=== PATIENT | female | born 1990 | race American Indian/Alaskan Native ===

== ENCOUNTER 2018-12-28 13:53 | Outpatient (CLI) | payer OTHER ==
[2018-12-28 15:44] LABS: Mean Corpuscular HGB Conc 32 % (30-34); Mean Corpuscular Volume 78 fl (79-97); Platelet Count 237 K/mm3 (140-440); Red Blood Count 3.61 M/mm3 (3.65-5.03)
[2018-12-28 15:50] LABS: Bacteria,Urine 2+ /HPF (Negative); Bilirubin,Urine NEG (Negative); Blood,Urine NEG (Negative); Color,Urine Amber (Yellow); Mucus,Urine 2+ /HPF
[2018-12-28 15:57] LABS: Alanine Aminotransferase 8 units/L (7-56); Uric Acid 4.4 mg/dL (3.5-7.6)
[2018-12-28 16:17] VITALS: BP 138/67
== END 2018-12-28 16:45 | disposition home or self-care (01) ==
LOC: TRG 13:53
PROVIDERS: ATTEND Obstetrics & Gynecology
DX: O47.1 False labor at or after 37 completed weeks of gestation (principal); Z3A.39 39 weeks gestation of pregnancy
CPT/HCPCS: 36415; 59025; 81001; 82565; 83615; 84450; 84460; 84550; 85027

== ENCOUNTER 2019-01-01 11:30 | Inpatient (IN) | payer OTHER ==
--- NOTE | 2018-12-25 16:02 | History and Physical Report ---
History of Present Illness Date of examination: 12/25/18 Chief complaint: Repeat delivery History of present illness: Past History : 3 Term Births: 2 Premature Births: 0 Living Children: 2 Para: 2 Mult. Births: 0 Prev : 2 Prev. attempt? none Aborta: 0 Elect. Ab: 0 Spont. Ab: 0 Ectopics: 0 # 1 Delivery date: 2008 Weeks Gestation: 41 Delivery type: Infant Sex: Male weight: 8-11 Comments: Failure to progress # 2 Delivery date: 2011 Weeks Gestation: 38 Delivery type: Infant Sex: Male weight: 7-11 Past Medical History: Negative Past Medical History Past Surgical History: (2008) (2011) Family History Summary: Other family member - Has No Family History of Ovarvian Cancer - Entered On: 12/12/2018 Other family member - Has No Family History of Colon Cancer - Entered On: 12/12/2018 Other family member - Has Family History of Hypertension - Entered On: 12/12/2018 Other family member - Has Family History of Diabetes - Entered On: 12/12/2018 Other family member - Has Family History of CVA or Stroke - Entered On: 12/12/2018 Other family member - Has Family History of Asthma - Entered On: 12/12/2018 Other family member - Has Family History Breast Cancer - Entered On: 12/12/2018 General Comments - FH: Glaucoma Social History: Marital Status: Children: 2 Occupation: unemployed Risk Factors: Smoked Tobacco Use: Current every day smoker Cigarettes: Yes Year started: 2016 Counseled to quit/cut down: yes Drug use: no HIV high-risk behavior: low risk Alcohol use: yes Drinks per day: social PAP Smear History: Date of Last PAP Smear: 07/17/2018 Results: normal Past Medical History 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 of genital herpes: no Genetic History Congenital Heart Defect: Mom: yes Dad: no Comments: sister ASD Marcello Disease: Mom: no Dad: no Thalassemia Mom: no Dad: no Neural Tube Defect Mom: no Dad: no Down's Syndrome Mom: no Dad: no Thierno-Sachs Mom: no Dad: no Sickle Cell Disease/Trait Mom: yes Dad: no Comments: Sister trait Hemophilia Mom: no Dad: no Muscular Dystrophy Mom: no Dad: no Cystic Fibrosis Mom: no Dad: no [place] Chorea Mom: no Dad: no Mental Retardation Mom: no Dad: no Fragile X Mom: no Dad: no Other Genetic/Chromosomal Disorder Mom: no Dad: no Child w/other defect Mom: no Dad: no Enviromental Exposures Xray Exposure: no Medication, drug, or alcohol use since LMP: no Chemical/Other Exposure: no Exposure to Cat Liter: no Hx of Parvovirus (Fifth Disease): no Current Allergies (reviewed today): VICODIN (HYDROCODONE-ACETAMINOPHEN TABS) (Critical) * ANAPHYYLAXIS (Critical) Physical Exam General appearance: well nourished, healthy appearing, no distress Chest/Lungs: respiratory effort normal, lungs clear to auscultation Cardiovascular: normal rate and rhythm Abdomen/GI: obese Extremities: no discoloration Impression & Recommendations: Problem # 1: Maternal care due to uterine scar from other previous surgery ([id number]) Consent reviewed and signed .The risks and alternatives for this surgery were reviewed with the patient. She was informed of possible bleeding, infection, injury to bowel, bladder, ureters or other adjacent organs. The patient was instructed/informed the following: The normal length of hospital stay for this procedure. Nothing to eat or drink after 3a the day of surgery Pre-op instruction sheets given. Wound care instructions given. Infection prec autions reviewed, patient to call for any signs or symptoms of infection. The usual discomforts associated with this procedure were detailed. Proper use of pain medicines was reviewed. Patient was given ample opportunity to have all her questions answered before signing informed consent. She declines sterilization Medications and Allergies Allergies Allergy/AdvReac Type Severity Reaction Status Date / Time acetaminophen [From Vicodin] Allergy Angioedema Verified 12/28/18 14:36 ceftibuten [From Cedax] Allergy Angioedema Verified 12/28/18 14:36 hydrocodone [From Vicodin] Allergy Angioedema Verified 12/28/18 14:36 Results All other labs normal. Assessment and Plan - Patient Problems (1) 39 weeks gestation of Status: Acute (2) Maternal care due to uterine scar from previous surgery Status: Acute Plan to address problem: She declines sterilization She was informed of the significant risks of complications occurring d/t body habitus and previous surgeries, specifically but not limited to, bowel injury that could lead to having BM's in a bag on her stomach and the same could occur for any injury to her urinary tract, also she was informed she will be as increased risk for bleeding that may require a blood transfusion with complication of infection or reaction or infection that along with the other complications could be fatal or life threatening. She voiced understanding. control options reviewed with patient
[~2019-01-01 11:30] MED LIST: ANCEF/STERILE WATER 2 GM/20 ML 2 GM/20 ML SYRINGE IV NR; BICITRA PO ONE; GENTAMICIN IV SCH; LACTATED RINGERS 1,000 ML IV SCH; PEPCID IV ONE; PITOCin/NS 20 UNIT/1000ML DRIP 20 UNITS/1,000 ML BAG IV SCH; REGLAN IV ONE
[2019-01-01] MEDS ORDERED: CLEOCIN 600 MG/50 mL 600 MG/50 ML BAG IV NR (13:00)
[2019-01-01] MEDS ORDERED: LACTATED RINGERS 2,000 ML ONE (14:01)
[2019-01-01] MEDS ORDERED: NACL 0.9% IV SCH (14:45)
[2019-01-01] MEDS ORDERED: GENTAMICIN IV SCH (14:45)
[2019-01-01 14:57] LABS: Hematocrit 27.6 % (30.3-42.9); Hemoglobin 8.8 gm/dl (10.1-14.3); Mean Corpuscular HGB Conc 32 % (30-34); Mean Corpuscular Volume 77 fl (79-97); Platelet Count 232 K/mm3 (140-440)
[2019-01-01 15:00] LABS: Red Cell Distribution Width 20.9 % (13.2-15.2)
[2019-01-01] MEDS ORDERED: BICITRA ONE (15:27)
[2019-01-01] MEDS ORDERED: REGLAN ONE (15:28)
[2019-01-01] MEDS ORDERED: PEPCID IV ONE (15:28)
[2019-01-01] MEDS ORDERED: PHENERGAN PR PRN (15:50)
[2019-01-01] MEDS ORDERED: ZOFRAN IV PRN (15:50)
[2019-01-01] MEDS ORDERED: PHENERGAN PO PRN (15:50)
[2019-01-01] MEDS ORDERED: NARCAN 0.4 MG/1 ML IV PRN ×2 (15:50→20:44)
[2019-01-01] MEDS ORDERED: DILAUDID IV PRN ×2 (15:50)
--- NOTE | 2019-01-01 15:50 | Anesthesia Consultation ---
Anesthesia Consult and Med Hx Date of service: 01/01/19 - Airway Anesthetic Teeth Evaluation: Good ROM Head & Neck: Adequate Mental/Hyoid Distance: Adequate Mallampati Class: Class II Intubation Access Assessment: Probably Good - Pre-Operative Health Status ASA Pre-Surgery Classification: ASA2 Proposed Anesthetic Plan: Epidural, Spinal - Pulmonary Hx Asthma: No - Cardiovascular System Hx Hypertension: No - Central Nervous System Hx Seizures: No Hx Psychiatric Problems: No - Endocrine Hx Renal Disease: No Hx Hypothyroidism: No Hx Hyperthyroidism: No - Hematic Hx Anemia: No Hx Sickle Cell Disease: No - Other Systems Hx Alcohol Use: No Hx Obesity: Yes (BMI 39.5)
--- NOTE | 2019-01-01 15:50 | Anesthesia Day of Surgery ---
Anesthesia Day of Surgery - Day of Surgery Patient Examined: Yes Patient H&P Reviewed: Yes Patient is NPO: Yes
[2019-01-01] MEDS ORDERED: SODIUM CHLORIDE FLUSH SYRINGE 10 ML IV NR ×2 (16:00→20:44)
[2019-01-01] MEDS ORDERED: SENSORCAINE/DEXTR 0.75-8.25% INFILTRATI ONE (17:18)
[2019-01-01] MEDS ORDERED: WATER FOR IRRIG STERILE IR ONE (18:00)
[2019-01-01] MEDS ORDERED: NACL 0.9% IR ONE (18:00)
[2019-01-01] MEDS ORDERED: NEO SYNEPHRINE/NS Syringe(OR USE) IV ONE (18:08)
[2019-01-01] MEDS ORDERED: ASTRAMORPH PF 10MG/10ML ONE (18:24)
--- NOTE | 2019-01-01 19:23 | Operative Report ---
Operative Report Operative Report: Date: 01/01/2019 Preoperative diagnosis: 1. Intrauterine at 39 weeks 2. Previous delivery 2 3. Maternal obesity Postoperative diagnosis: 1. Intrauterine at 39 weeks 2. Previous delivery 2 3. Maternal obesity Procedure: Low uterine transverse incision for delivery Surgeon: Paloma Yousif MD [employer] Bean Roaster Helper: Natalya March Anesthesia: Spinal Anesthesiologist: Dr. Gonzalez Estimated blood loss: 900 mL Urine out: 50 mL Findings: Live born female infant. Weight 8 lbs. 12 oz. Apgars 8 at 1 minute and 9 at 5 minutes. Uterus grossly normal, tubes paratubal cysts otherwise grossly normal, ovaries grossly normal. Procedure: After risk, benefits, complications, consequences and alternatives for this procedure were discussed with patient and consents were reviewed and signed, she was taken to the OR where spinal anesthesia was placed. She was then placed in the left lateral tilt position, and prepped and draped in the usual sterile fashion. Timeout was performed, and an appropriate level of anesthesia was noted, a Pfannenstiel incision was made and extended to the fascia which was incised and extended in the lateral directions. The overlying fascia was sharply dissected away from the underlying rectus muscles in the superior and inferior directions. The midline was entered bluntly. The vesicouterine fold was incised and with blunt dissection the bladder flap was created. A transverse incision was made in the lower uterine segment and extended in superiolateral direction with finger fractionation. Clear fluid was noted. The was delivered from cephalic position. Mouth and nose were bulb suctioned. Spontaneous cry and excellent tone were noted. Cord was doubly clamped and cut. The infant was given to /resuscitation team present. The placenta was manually extracted. The uterus was then exteriorized and cleared of any further products of conception or placental tissue. The incision was reapproximated using 0 Vicryl in a running interlocking stitch. Grossly normal uterus, tubes and ovaries were noted. Once hemostasis was noted, the uterus was allowed back into the pelvic cavity. The pelvis was irrigated with warm normal saline. Again hemostasis was noted . Surgicel applied for further hemostasis. Interceed was then placed to prevent adhesions. Then attention was turned to the rectus muscles. The rectus muscles reapproximated using 0 Vicryl in a simple interrupted stitch x 3. Once hemostasis was noted, the fascia was reapproximated using 0 Vicryl running stitch fashion. Once hemostasis was noted skin incision was reapproximated using 4-0 Vicryl on a Ashish needle in a subcuticular manner. Counts were correct 3. Patient tolerated procedure well state recovery room in stable condition.
[2019-01-01] MEDS ORDERED: TUCKS PAD TP PRN (20:44)
[2019-01-01] MEDS ORDERED: D5LR 1,000 ML IV SCH (20:44)
[2019-01-01] MEDS ORDERED: MILK OF MAGNESIA PO PRN (20:44)
[2019-01-01] MEDS ORDERED: LANSINOH TP PRN (20:44)
[2019-01-01] MEDS ORDERED: PITOCin/NS 20 UNIT/1000ML DRIP 20 UNITS/1,000 ML BAG IV SCH (20:44)
[2019-01-01] MEDS ORDERED: MYLICON PO PRN (20:44)
[2019-01-01] MEDS: TORADOL IV PRN (21:22)
[2019-01-02] MEDS: BENADRYL IV PRN ×2 (01:30→05:54)
[2019-01-02] MEDS: GENTAMICIN/NS 100 MG/100 ML 100 MG/100 ML BAG IV SCH ×2 (03:30→10:13)
[2019-01-02] MEDS: CLEOCIN 600 MG/50 mL 600 MG/50 ML BAG IV SCH ×2 (05:55→13:36)
[2019-01-02] MEDS ORDERED: BOOSTRIX IM ONE (06:00)
[2019-01-02 07:45] LABS: Hematocrit 25.3 % (30.3-42.9); Hemoglobin 8.1 gm/dl (10.1-14.3); Mean Corpuscular HGB Conc 32 % (30-34); Mean Corpuscular Volume 76 fl (79-97); Platelet Count 210 K/mm3 (140-440); Red Blood Count 3.32 M/mm3 (3.65-5.03); Red Cell Distribution Width 20.4 % (13.2-15.2)
--- NOTE | 2019-01-02 08:30 | Progress Note ---
Assessment and Plan Patient doing well, no complaints. Ambulated to bathroom without problem. lochia scant, dressing dry. H&H 8.1/25.3 (existing anemia.) B/p noted 130-150's/60's-90's. PIH labs ordered in yaneth of H&H. denies s/s pre-e. Will continue to monitor. continue postop pathway. - Patient Problems (1) delivery delivered Current Visit: Yes Status: Acute (2) Elevated blood pressure reading without diagnosis of hypertension Current Visit: Yes Status: Acute Subjective - Subjective Date of service: 01/02/19 Principal diagnosis: postop day #1 s/p repeat c/s, elevated b/p Patient reports: appetite normal, voiding normally, pain well controlled, ambulating normally, no dizzy ambulation, no nauseated, no other (denies CASANOVA/visual changes/epigastric pain) : doing well, nursing well Objective - Vital Signs Latest vital signs: Vital Signs Temp Pulse Resp BP BP Pulse Ox 01/02/19 05:40 98.7 F 77 20 140/90 01/02/19 00:50 97.5 F L 68 18 151/79 01/01/19 20:42 97 F L 61 18 134/84 98 01/01/19 20:00 97.6 F 68 14 138/66 100 01/01/19 19:45 72 14 134/86 100 01/01/19 19:30 69 32 H 123/78 98 01/01/19 19:15 68 14 134/76 97 01/01/19 19:10 64 18 135/70 99 01/01/19 19:05 76 15 136/71 97 01/01/19 19:01 97.6 F 80 11 L 143/77 96 01/01/19 13:32 98.6 F 89 20 136/85 Intake and Output 01/01/19 01/02/19 01/02/19 23:59 07:59 15:59 Intake Total 1900 480 Output Total 325 800 Balance 1575 -320 Intake: IV 1900 Oral 480 Output: Urine 325 800 Indwelling Catheter 800 Other: Total, Intake Amount 480 Total, Output Amount 800 Estimated Blood Loss 900 - Exam Breasts: Present: normal, Cardiovascular: Present: Regular rate Lungs: Present: Clear to auscultation, Normal air movement Abdomen: Present: normal appearance, soft. Absent: distention Vulva: both: normal Uterus: Present: normal, firm, fundal height at umbilicus Extremities: Present: normal Deep Tendon Reflex Grade: Normal +2 Incision: Present: normal, dry, dressed - Labs Labs: Abnormal lab results 01/01/19 01/02/19 01/02/19 Range/Units 14:47 07:04 07:44 RBC 3.60 L 3.32 L (3.65-5.03) M/mm3 Hgb 8.8 L 8.1 L (10.1-14.3) gm/dl Hct 27.6 L 25.3 L (30.3-42.9) % MCV 77 L 76 L (79-97) fl MCH 24 L 25 L (28-32) pg RDW 20.9 H 20.4 H (13.2-15.2) % Creatinine 0.4 L (0.7-1.2) mg/dL Lactate Dehydrogenase 343 H (91-180) units/L
[2019-01-02 08:31] LABS: Alanine Aminotransferase < 5 units/L (7-56)
[2019-01-02] MEDS: FEOSOL PO SCH (10:27)
[2019-01-02 11:03] LABS: Bilirubin,Urine NEG (Negative); Blood,Urine LG (Negative); Color,Urine Red (Yellow); Mucus,Urine FEW /HPF; Urobilinogen,Urine < 2.0 mg/dL (<2.0)
[2019-01-02 11:04] LABS: RBC,Urine > 182.0 /HPF (0.0-6.0)
[2019-01-02] MEDS ORDERED: AFLURIA QUAD 2018-2019 SYRINGE IM ONE (12:00)
[2019-01-02] MEDS: PERCOCET 5/325 PO PRN (13:42)
[2019-01-02] MEDS: TORADOL IV PRN (18:05)
[2019-01-03] MEDS: PERCOCET 5/325 PO PRN ×3 (00:09→19:48)
--- NOTE | 2019-01-03 08:43 | Progress Note ---
Assessment and Plan FF below umb Lochia small LE edema noted DTRS wnl. Incision D&I - Patient Problems (1) delivery delivered Onset Date: ~01/01/19 Current Visit: Yes Status: Acute Plan to address problem: continue pathway Advance diet and activity as tolerated. Abdominal binder (2) Elevated blood pressure reading without diagnosis of hypertension Onset Date: ~01/03/19 Current Visit: Yes Status: Acute Plan to address problem: pt BP 150/90-80 Will start Labetalol 200mg po BID Pt denies CASANOVA, blurred vision, chest pain. Consulted with . Subjective - Subjective Date of service: 01/03/19 (consult with will start Labetalol) Principal diagnosis: postop day #2s/p repeat c/s, elevated b/p Patient reports: appetite normal, voiding normally, pain well controlled, ambulating normally : doing well Objective - Vital Signs Latest vital signs: Vital Signs Temp Pulse Resp BP BP Pulse Ox 01/03/19 06:25 87 20 150/93 97 01/03/19 00:41 99.4 F 101 H 20 158/98 158/98 99 01/02/19 16:22 98.1 F 97 H 18 137/89 Intake and Output 01/02/19 01/03/19 01/03/19 22:59 06:59 14:59 Intake Total 360 Balance 360 Intake: Oral 360 Other: Total, Intake Amount 360 - Exam Breasts: Present: normal Cardiovascular: Present: Regular rate Lungs: Present: Clear to auscultation, Normal air movement Abdomen: Present: normal appearance, soft, normal bowel sounds Uterus: Present: normal, fundal height below umbilicus Extremities: Present: normal, edema Deep Tendon Reflex Grade: Normal +2 Incision: Present: normal, dry, intact - Labs Labs: Abnormal lab results 01/02/19 Range/Units 10:00 Urine WBC (Auto) 83.0 H (0.0-6.0) /HPF
[2019-01-03] MEDS: FEOSOL PO SCH (09:00)
[2019-01-03] MEDS: NORMODYNE PO SCH ×2 (10:56→22:08)
[2019-01-03] MEDS: IBUPROFEN PO PRN ×2 (11:31→22:04)
[2019-01-03] MEDS ORDERED: IBUPROFEN PO PRN (18:57)
[2019-01-04] MEDS: PERCOCET 5/325 PO PRN (02:01)
--- NOTE | 2019-01-04 08:48 | Discharge Summary ---
Providers - Providers Date of Admission: 01/01/19 12:48 Date of discharge: 01/04/19 (OOB for AM care Req d/c) Attending physician: LILY BELLA 01/01/19 20:44 Consult to Cms Expert [CONS] Routine Reason For Exam: Primary care physician: LILY BELLA Hospitalization Reason for admission: section Procedure: repeat low transverse Episiotomy: none Laceration: none Incision: normal, dry, intact Other procedures: none complications: none Discharge diagnosis: IUP at term delivered baby: female Hospital course: uncomplicated repeat section Pt OOB for AM toilet Request d/c today BP 140-130/80-70 good response with Labetalol Will continue after d/c FF below umb Lochia scant Incision D&I Asymptomatic anemia. Doing well s/p c/s P: d/c today with instructions RTO 1 week postop visit Appt is [facility] for 01-08-19 Pt will call with CASANOVA,blurred vision, chest pain. Condition at discharge: Good Disposition: - TO HOME OR SELFCARE - Discharge Diagnoses (1) delivery delivered Status: Acute (2) Elevated blood pressure reading without diagnosis of hypertension Status: Acute Plan - Discharge Medications Prescriptions: Docusate Sodium [Colace] 100 mg PO BID PRN #30 capsule PRN Reason: Constipation Ferrous Sulfate [Feosol 325 MG tab] 325 mg PO BID #90 tablet Ibuprofen [Motrin 800 MG tab] 800 mg PO TID PRN #30 tablet PRN Reason: Pain oxyCODONE /ACETAMINOPHEN [Percocet 5/325 mg] 1 - 2 tab PO Q4HR PRN #20 tablet PRN Reason: Pain - Provider Discharge Summary Activity: routine, no sex for 6 weeks, no heavy lifting 4 weeks, no strenuous exercise Diet: routine Instructions: routine Additional instructions: [] Smoking cessation referral if applicable(refer to patient education folder for contact #) [] Refer to [facility] Booklet Call your doctor immediately for: * Fever > 100.5 * Heavy vaginal bleeding ( >1 pad per hour) * Severe persistent headache * Shortness of breath * Reddened, hot, painful area to leg or breast * Drainage or odor from incision. * Keep incision clean and dry at all times and follow doctor's instructions regarding bathing/showering - Follow up plan Follow up: LILY BELLA MD [Primary Care Provider] - 01/08/19 (Congratulations! Please keep your postoperative visit as scheduled. Take medications as prescribed. Call with headache not relieved with Tylenol, blurred vision, chest pain. Call with concerns. [phone])
[2019-01-04] MEDS: NORMODYNE PO SCH (09:40)
[2019-01-04] MEDS: FEOSOL PO SCH (09:40)
[2019-01-04] MEDS: IBUPROFEN PO PRN (09:46)
[2019-01-04 09:59] VITALS: BP 134/83
== END 2019-01-04 12:30 | disposition home or self-care (01) | DRG 766 ==
LOC: APU 12:48 → OB 20:22
PROVIDERS: ADMIT Obstetrics & Gynecology; ATTEND Obstetrics & Gynecology
PROC: 10D00Z1 Extraction of Products of Conception, Low, Open Approach (ICD-10-PCS; principal; 2019-01-01)
DX: O34.211 Maternal care for low transverse scar from previous cesarean delivery (principal); O99.334 Smoking (tobacco) complicating childbirth; O99.214 Obesity complicating childbirth; O99.02 Anemia complicating childbirth; O75.89 Other specified complications of labor and delivery; E66.8 Other obesity; D64.9 Anemia, unspecified; R03.0 Elevated blood-pressure reading, without diagnosis of hypertension; N83.8 Other noninflammatory disorders of ovary, fallopian tube and broad ligament; F17.210 Nicotine dependence, cigarettes, uncomplicated; Z3A.39 39 weeks gestation of pregnancy; Z37.0 Single live birth
CPT/HCPCS: 36415; 81001; 82565; 83615; 84450; 84460; 84550; 85027; 86850; 86900; 86901; 90686; G0378; C1765; J1200; J1580; J1885; J2274; J2370; J2590; J2765; J7120; J7121

== ENCOUNTER 2019-01-08 11:02 | Inpatient (IN) | payer OTHER ==
[2019-01-08] MEDS ORDERED: NORMODYNE PO ONE (11:07)
[2019-01-08] MEDS ORDERED: LACTATED RINGERS 1,000 ML IV SCH (12:00)
[2019-01-08] MEDS ORDERED: MAGNESIUM SULFATE 40GM/1000ML 40 GM/1,000 ML BAG IV SCH (12:00)
[2019-01-08] MEDS ORDERED: MAGNESIUM SULFATE 4GM/100ML 4 GM/100 ML BAG IV ONE ×2 (12:00→12:30)
[2019-01-08] MEDS ORDERED: LACTATED RINGERS 1,000 ML ONE (12:30)
[2019-01-08] MEDS ORDERED: MAGNESIUM SULFATE 40GM/1000ML 40 GM/1,000 ML BAG IV ONE (12:30)
[2019-01-08 13:38] LABS: Hematocrit 26.6 % (30.3-42.9); Hemoglobin 8.4 gm/dl (10.1-14.3); Mean Corpuscular HGB Conc 31 % (30-34); Mean Corpuscular Volume 79 fl (79-97); Platelet Count 287 K/mm3 (140-440); Red Blood Count 3.39 M/mm3 (3.65-5.03)
[2019-01-08 13:39] LABS: Red Cell Distribution Width 21.9 % (13.2-15.2)
[2019-01-08 13:56] LABS: Alanine Aminotransferase 83 units/L (7-56)
[2019-01-08 14:33] LABS: Uric Acid 5.9 mg/dL (3.5-7.6)
[2019-01-08] MEDS: NORMODYNE PO SCH (21:38)
--- NOTE | 2019-01-08 22:21 | History and Physical Report ---
History of Present Illness Date of examination: 01/08/19 Date of admission: 01/08/19 11:37 Chief complaint: preeclampsia History of present illness: This is a 28 yo female, s/p delivery 01/01/2019. She presented to the office for her postoperative visit without complaints however she had BP's 180/100's. She admitted now for management of preeclampsia Past History : 3 Term Births: 3 Premature Births: 0 Living Children: 3 Para: 3 Mult. Births: 0 Prev : 3 Prev. attempt? none Aborta: 0 Elect. Ab: 0 Spont. Ab: 0 Ectopics: 0 # 1 Delivery date: 2008 Weeks Gestation: 41 Delivery type: Infant Sex: Male weight: 8-11 Comments: Failure to progress # 2 Delivery date: 2011 Weeks Gestation: 38 Delivery type: Infant Sex: Male weight: 7-11 #3 Delivery Date: 01/01/2019 Gestational Age: 39 weeks Anesthesia: epidural Delivery Type: Weight: 8.75 lbs Gender: female Location: [facility] - 1 minute: 8; 5 minutes: 9 Past Medical History: Negative Past Medical History Past Surgical History: (2008) (2011) (01/01/2019) Family History Summary: Other family member - Has No Family History of Ovarvian Cancer - Entered On: 12/12/2018 Other family member - Has No Family History of Colon Cancer - Entered On: 12/12/2018 Other family member - Has Family History of Hypertension - Entered On: 12/12/2018 Other family member - Has Family History of Diabetes - Entered On: 12/12/2018 Other family member - Has Family History of CVA or Stroke - Entered On: 12/12/2018 Other family member - Has Family History of Asthma - Entered On: 12/12/2018 Other family member - Has Family History Breast Cancer - Entered On: 12/12/2018 General Comments - FH: Glaucoma Social History: Marital Status: Children: 2 Occupation: unemployed Risk Factors: Smoked Tobacco Use: Current every day smoker Cigarettes: Yes Year started: 2016 Counseled to quit/cut down: yes Drug use: no HIV high-risk behavior: low risk Alcohol use: yes Drinks per day: social PAP Smear History: Date of Last PAP Smear: 07/17/2018 Results: normal Past Medical History 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 of genital herpes: no Past History Past Surgical History: section - Obstetrical History : 3 Medications and Allergies Allergies Allergy/AdvReac Type Severity Reaction Status Date / Time acetaminophen [From Vicodin] Allergy Angioedema Verified 12/28/18 14:36 ceftibuten [From Cedax] Allergy Angioedema Verified 12/28/18 14:36 hydrocodone [From Vicodin] Allergy Angioedema Verified 12/28/18 14:36 Home Medications Medication Instructions Recorded Confirmed Last Taken Type Docusate Sodium [Colace] 100 mg PO BID PRN #30 capsule 01/01/19 Unknown Rx Ferrous Sulfate [Feosol 325 MG tab] 325 mg PO BID #90 tablet 01/01/19 Unknown Rx Ibuprofen [Motrin 800 MG tab] 800 mg PO TID PRN #30 tablet 01/01/19 Unknown Rx oxyCODONE /ACETAMINOPHEN [Percocet 1 - 2 tab PO Q4HR PRN #20 tablet 01/01/19 Unknown Rx 5/325 mg] Labetalol [Normodyne TAB] 200 mg PO BID #60 tablet 01/04/19 Unknown Rx Active Meds: Active Medications Hydralazine HCl (Apresoline) 10 mg IV ONCE ONE Stop: 01/08/19 22:13 Lactated Ringer's (Lactated Ringers) 1,000 mls @ 125 mls/hr IV DIRECT GAETANO Last Admin: 01/08/19 13:06 Dose: 125 mls/hr Documented by: Magnesium Sulfate (Magnesium Sulfate 40gm/1000ml) 40 gm in 1,000 mls @ 50 mls /hr IV DIRECT GAETANO Last Admin: 01/08/19 13:07 Dose: 2 gm/hr, 50 mls/hr Documented by: Ibuprofen (Motrin) 800 mg PO Q8H PRN PRN Reason: Pain, Mild (1-3) Labetalol HCl (Normodyne) 300 mg PO TID [facility] Last Admin: 01/08/19 21:38 Dose: 300 mg Documented by: Review of Systems All systems: negative Neurological: headaches - Vital Signs Vital signs: Vital Signs Pulse Pulse Ox 66 99 01/08/19 13:00 01/08/19 13:00 Temp Pulse Resp BP Pulse Ox 98.4 F 75 16 179/99 98 01/08/19 14:00 01/08/19 22:11 01/08/19 14:00 01/08/19 22:11 01/08/19 22:08 - Physical Exam Breasts: Positive: deferred Cardiovascular: Regular rate Lungs: Positive: Clear to auscultation, Normal air movement Abdomen: Positive: normal appearance, soft, normal bowel sounds Uterus: Positive: other (firm below umbilicus) Extremities: Positive: edema (2+) Deep Tendon Reflex Grade: Normal +2 Results Result Diagrams: 01/08/19 13:15 01/08/19 13:15 Abnormal lab results 01/08/19 01/08/19 Range/Units 13:15 13:15 RBC 3.39 L (3.65-5.03) M/mm3 Hgb 8.4 L (10.1-14.3) gm/dl Hct 26.6 L (30.3-42.9) % MCH 25 L (28-32) pg RDW 21.9 H (13.2-15.2) % Creatinine 0.5 L (0.7-1.2) mg/dL AST 101 H (5-40) units/L ALT 83 H (7-56) units/L All other labs normal. Assessment and Plan Admit, start MgSO4 therapy, strict I&O's, Labetalol tid - Patient Problems (1) Severe pre-eclampsia, Current Visit: Yes Status: Acute
[2019-01-08] MEDS ORDERED: APRESOLINE IV ONE (22:32)
[2019-01-08] MEDS ORDERED: TORADOL ONE (22:39)
[2019-01-08 23:58] LABS: Amphetamine Screen,Urine PRESUMPTIVE NEGATIVE; Benzodiazepines Screen,Urine PRESUMPTIVE NEGATIVE; Cannabinoid Screen,Urine PRESUMPTIVE NEGATIVE; Cocaine Screen,Urine PRESUMPTIVE NEGATIVE; Methadone Screen,Urine PRESUMPTIVE NEGATIVE; Opiate Screen,Urine PRESUMPTIVE NEGATIVE
[2019-01-09] MEDS ORDERED: LACTATED RINGERS 1,000 ML ONE (03:17)
[2019-01-09] MEDS: IBUPROFEN PO PRN (06:10)
--- NOTE | 2019-01-09 08:32 | Progress Note ---
Assessment and Plan pt recently medicated for CASANOVA, reports relief with previous doses. She was sleeping upon my arrival to room and was easily awakened with touch to leg. Plan to continue mag sulfate x 24h. she is currently taking labetalol 300mg TID. b/p range 120-159/50-90. output adequate. continue current management. - Patient Problems (1) Severe pre-eclampsia, Current Visit: Yes Status: Acute Subjective - Subjective Date of service: 01/09/19 (painter bottom note) Principal diagnosis: pre-e Patient reports: appetite normal, other (CASANOVA- frontal down right side and around to neck rated 9/10, denies visual changes or epigastric pain), no nauseated Objective - Vital Signs Latest vital signs: Vital Signs Temp Pulse Resp BP Pulse Ox 01/09/19 08:23 78 133/64 01/09/19 07:53 78 145/85 01/09/19 07:23 77 148/84 01/09/19 06:55 78 159/89 01/09/19 06:23 84 144/91 01/09/19 05:53 83 139/85 01/09/19 05:23 85 146/82 01/09/19 04:53 83 140/83 01/09/19 04:32 98 F 16 01/09/19 04:23 86 137/83 01/09/19 03:53 82 133/72 01/09/19 03:23 85 141/87 01/09/19 02:53 83 132/75 01/09/19 02:23 94 H 141/80 01/09/19 01:53 89 125/88 01/09/19 01:23 83 128/77 01/09/19 00:53 87 110/58 01/09/19 00:23 89 120/59 01/09/19 00:00 98.4 F 18 01/08/19 23:53 85 136/83 01/08/19 23:23 91 H 138/85 01/08/19 22:53 97 H 133/77 01/08/19 22:25 84 151/72 01/08/19 22:23 84 98 01/08/19 22:22 76 151/72 01/08/19 22:11 75 179/99 01/08/19 22:08 72 98 01/08/19 21:53 70 162/91 98 01/08/19 21:38 74 98 01/08/19 21:23 68 156/77 98 01/08/19 21:08 73 98 01/08/19 20:53 72 177/89 98 01/08/19 20:38 78 98 01/08/19 20:23 63 156/83 01/08/19 20:22 61 98 01/08/19 20:07 67 97 01/08/19 19:53 65 158/93 01/08/19 19:52 64 99 01/08/19 19:37 78 98 01/08/19 19:22 65 166/88 99 01/08/19 19:18 97.1 F L 20 01/08/19 19:07 78 98 01/08/19 18:53 65 163/99 01/08/19 18:52 60 96 01/08/19 18:37 72 98 01/08/19 18:35 79 94 01/08/19 18:23 65 158/85 01/08/19 18:22 72 98 01/08/19 18:07 64 98 01/08/19 17:53 65 162/93 01/08/19 17:52 59 L 98 01/08/19 17:37 57 L 97 01/08/19 17:23 64 138/87 01/08/19 17:22 72 99 01/08/19 17:07 76 97 01/08/19 16:59 64 94 01/08/19 16:53 59 L 157/92 01/08/19 16:52 58 L 94 01/08/19 16:37 64 98 01/08/19 16:23 63 154/87 01/08/19 16:22 63 95 01/08/19 16:07 63 96 01/08/19 15:53 58 L 148/89 01/08/19 15:52 61 96 01/08/19 15:37 61 96 01/08/19 15:30 77 86 01/08/19 15:25 67 92 01/08/19 15:23 64 156/89 01/08/19 15:22 64 90 01/08/19 15:19 65 93 01/08/19 15:14 77 94 01/08/19 15:07 74 96 01/08/19 14:53 54 L 172/89 01/08/19 14:52 55 L 97 01/08/19 14:37 56 L 97 01/08/19 14:23 55 L 169/95 01/08/19 14:22 59 L 96 01/08/19 14:07 71 97 01/08/19 14:00 98.4 F 16 01/08/19 13:53 59 L 160/89 01/08/19 13:52 66 100 01/08/19 13:37 64 100 01/08/19 13:22 63 147/79 01/08/19 13:20 69 97 01/08/19 13:18 75 141/63 01/08/19 13:15 64 98 01/08/19 13:13 74 155/80 01/08/19 13:10 66 98 01/08/19 13:08 54 L 179/108 01/08/19 13:05 56 L 99 01/08/19 13:03 55 L 181/92 01/08/19 13:00 66 99 Intake and Output 01/08/19 01/09/19 01/09/19 23:59 07:59 15:59 Output Total 2700 700 Balance -2700 -700 Output: Urine 2700 700 Indwelling Catheter 2700 700 Other: Total, Output Amount 2700 700 - Exam Breasts: Present: normal, (pumping) Cardiovascular: Present: Regular rate Lungs: Present: Clear to auscultation, Normal air movement Abdomen: Present: normal appearance, soft Uterus: Present: normal, firm Extremities: Present: normal Deep Tendon Reflex Grade: Normal but brisk +3 Incision: Present: normal, dry, intact - Labs Labs: Abnormal lab results 01/08/19 01/08/19 01/09/19 Range/Units 13:15 13:15 06:57 RBC 3.39 L (3.65-5.03) M/mm3 Hgb 8.4 L (10.1-14.3) gm/dl Hct 26.6 L (30.3-42.9) % MCH 25 L (28-32) pg RDW 21.9 H (13.2-15.2) % Creatinine 0.5 L (0.7-1.2) mg/dL Magnesium 5.90 H (1.7-2.3) mg/dL AST 101 H (5-40) units/L ALT 83 H (7-56) units/L
[2019-01-09] MEDS: NORMODYNE PO SCH ×3 (08:42→19:57)
[2019-01-09] MEDS ORDERED: MAGNESIUM SULFATE 40GM/1000ML 40 GM/1,000 ML BAG IV ONE (10:29)
[2019-01-09] MEDS ORDERED: TORADOL IV ONE (22:25)
[2019-01-10] MEDS: IBUPROFEN PO PRN (00:10)
[2019-01-10] MEDS: NORMODYNE PO SCH ×5 (08:00→22:01)
--- NOTE | 2019-01-10 10:48 | Progress Note ---
Assessment and Plan patient resting without complaints. spike in b/p prior to administration of 0800 dose of Labetalol 300mg (162/100 x 2), reviewed b/p with MD. Will continue with current TID dose of labetalol and monitor b/ps throughout the day. plan reviewed with patient, all questions addressed. - Patient Problems (1) Severe pre-eclampsia, Current Visit: Yes Status: Acute Subjective - Subjective Date of service: 01/10/19 (gis administrator note) Principal diagnosis: pre-e, day 9 Patient reports: appetite normal, voiding normally, pain well controlled, ambulating normally, no dizzy ambulation, no nauseated Objective - Vital Signs Latest vital signs: Vital Signs Temp Pulse Resp BP BP Pulse Ox 01/10/19 08:37 58 L 152/87 01/10/19 08:05 65 162/100 01/10/19 07:14 97.4 F L 65 18 162/100 98 01/10/19 05:35 98.6 F 68 16 141/80 98 01/10/19 01:33 98.7 F 66 18 148/83 97 01/10/19 00:10 18 01/09/19 20:05 18 01/09/19 20:02 97.9 F 78 18 144/86 99 01/09/19 19:57 78 144/86 01/09/19 15:50 98.1 F 70 18 140/78 01/09/19 15:23 83 133/74 01/09/19 14:53 75 134/75 01/09/19 14:13 86 123/64 01/09/19 13:53 86 123/64 01/09/19 13:23 80 120/66 01/09/19 12:23 72 122/69 01/09/19 12:16 76 122/71 01/09/19 12:15 98.0 F 76 18 122/71 01/09/19 11:53 74 121/71 01/09/19 11:23 75 127/77 01/09/19 10:53 75 128/72 Intake and Output 01/09/19 01/10/19 01/10/19 23:59 07:59 15:59 Intake Total 470 1200 120 Output Total 650 800 Balance -180 400 120 Intake: Oral 250 480 120 Intake, Free Water 220 720 Output: Urine 650 800 Void 650 800 Other: Total, Intake Amount 250 480 120 Total, Output Amount 400 800 Voiding Method Toilet Toilet # Voids Void 2 2 # Bowel Movements 1 - Exam Breasts: Present: normal Cardiovascular: Present: Regular rate Lungs: Present: Clear to auscultation, Normal air movement Abdomen: Present: normal appearance, soft Uterus: Present: normal Extremities: Present: normal Incision: Present: normal, dry, intact - Labs Labs: Abnormal lab results 01/09/19 Range/Units 12:52 Magnesium 6.10 H (1.7-2.3) mg/dL
[2019-01-10] MEDS: PROCARDIA XL PO SCH (17:19)
[2019-01-10] MEDS ORDERED: NORMODYNE IV ONE (19:00)
[2019-01-10] MEDS ORDERED: APRESOLINE IV ONE (19:00)
--- NOTE | 2019-01-10 21:45 | Event Note ---
Date: 01/10/19 Resting in bed, no complaints. She's aware of elevated BPs and plan of care, questions answered and she agrees with plan of care
[2019-01-10] MEDS ORDERED: NORMODYNE PO SCH (23:00)
--- NOTE | 2019-01-11 07:49 | Discharge Summary ---
Providers - Providers Date of Admission: 01/08/19 11:37 Date of discharge: 01/11/19 Attending physician: LILY BELLA Primary care physician: LILY BELLA Hospitalization Reason for admission: blood pressure management - pre-e Condition: Good Procedures: mag sulfate x24h Hospital course: admission for pre-e and b/p control Disposition: DC-01 TO HOME OR SELFCARE - Discharge Diagnoses (1) Severe pre-eclampsia, Status: Acute Core Measure Documentation - Palliative Care Palliative Care/ Comfort Measures: Not Applicable - Core Measures Any of the following diagnoses?: none Exam - Constitutional Vitals: Temp Pulse Resp BP Pulse Ox 98.6 F 75 18 136/87 99 01/11/19 01:05 01/11/19 01:05 01/11/19 01:05 01/11/19 01:05 01/11/19 01:05 General appearance: Present: no acute distress, well-nourished - EENT Eyes: Present: PERRL ENT: hearing intact, clear oral mucosa - Neck Neck: Present: supple, normal ROM - Respiratory Respiratory effort: normal Respiratory: bilateral: CTA - Cardiovascular Heart Sounds: Present: S1 & S2. Absent: rub, click - Extremities Extremities: pulses symmetrical, No edema Peripheral Pulses: within normal limits - Abdominal General gastrointestinal: Present: soft, non-tender, non-distended, normal bowel sounds Female genitourinary: Present: normal - Integumentary Integumentary: Present: clear, warm, dry - Musculoskeletal Musculoskeletal: gait normal, strength equal bilaterally - Psychiatric Psychiatric: appropriate mood/affect, intact judgment & insight - Neurologic Neurologic: CNII-XII intact, moves all extremities - Additional findings Additional findings: pumping breast milk, denies CASANOVA/visual changes or epigastric pain. incision D&I. Plan Activity: no restrictions Diet: low salt Wound: open to air, keep clean and dry Special Instructions: record daily BP diary (twice daily, call for blood pressure >160/90), no heavy lifting Follow up with: LILY BELLA MD [Primary Care Provider] - 01/13/19 1:30 pm (Please check your blood pressure twice daily or if you experience a headache, visual changes or upper abdominal pain. Call for any blood pressures greater than 160/90. Continue taking your medication as directed. Your appointment has already been scheduled in our [place] office ade @ 1:30pm.) Prescriptions: Labetalol [Normodyne TAB] 400 mg PO TID #60 tablet NIFEdipine XL [Procardia Xl] 30 mg PO QDAY #30 tablet
[2019-01-11] MEDS: NORMODYNE PO SCH (09:00)
[2019-01-11] MEDS: PROCARDIA XL PO SCH (11:20)
[2019-01-11 23:21] VITALS: BP 137/78
== END 2019-01-11 11:20 | disposition home or self-care (01) | DRG 776 ==
LOC: 3A 11:02 → UNDOADMIN 11:02 → LD 11:37 → OB 01-09 16:14
PROVIDERS: ADMIT Obstetrics & Gynecology; ATTEND Obstetrics & Gynecology
DX: O14.15 Severe pre-eclampsia, complicating the puerperium (principal); O99.335 Smoking (tobacco) complicating the puerperium; F17.210 Nicotine dependence, cigarettes, uncomplicated
CPT/HCPCS: 36415; 80307; 82565; 83735; 84450; 84460; 84550; 85027; 96360; 96365; G0378; J0360; J1885; J3475; J7120